=== PATIENT | female | born 1940 | race Caucasian/White ===

== ENCOUNTER 2018-07-27 07:22 | Day surgery (SDC) | payer MEDICARE, BC ==
[~2018-07-27 07:22] MED LIST: Lactated Ringers 1,000 ML IV SCH; Sodium Chloride 0.9% 10 ML Syringe FLUSH PRN
[2018-07-27] MEDS ORDERED: ceFAZolin 1 GM Vial ONE (07:27)
[2018-07-27] MEDS ORDERED: ceFAZolin 2 GM in Sodium Chloride 0.9% 50 ML IV SCH (08:00)
[2018-07-27] MEDS ORDERED: Propofol 200 MG/20 ML SDV ONE (09:20)
[2018-07-27 13:26] VITALS: BP 109/59
== END 2018-07-27 11:45 | disposition home or self-care (01) ==
LOC: LB.SDS 07:22
PROVIDERS: ATTEND Podiatrist Foot & Ankle Surgery
DX: M21.6X2 Other acquired deformities of left foot (principal); I48.91 Unspecified atrial fibrillation; N18.9 Chronic kidney disease, unspecified; I50.9 Heart failure, unspecified; D46.9 Myelodysplastic syndrome, unspecified; M06.9 Rheumatoid arthritis, unspecified; E53.8 Deficiency of other specified B group vitamins; Z87.891 Personal history of nicotine dependence; Z79.01 Long term (current) use of anticoagulants; Z79.899 Other long term (current) drug therapy; Z88.5 Allergy status to narcotic agent
CPT/HCPCS: J0690; J2704; J7050; J7120

== ENCOUNTER 2018-10-25 11:36 | Emergency (ER) | payer MEDICARE, BC ==
--- NOTE | 2018-10-25 12:03 | EDM.PDOC ---
ED HPI GENERAL MEDICAL PROBLEM - General Stated Complaint: LEG PAIN Time Seen by Provider: 10/25/18 11:45 Source of Information: Reports: Patient History Limitations: Reports: No Limitations - History of Present Illness INITIAL COMMENTS - FREE TEXT/NARRATIVE: Pt is a 77 year old female with past medical history of Paroxysmal atrial fibrillation , myelodysplastic syndrome. RA and nonischemic cardiomyopathy with Defibrillator on chronic anticoagulation. HE is here as she has not been able to get out of her bed as her left leg hurts. Apparently patient was down to see her vp software support yesterday and was doing fairly well. Her lasix was increased to 40mg as she has had increasing lower extremity edema, and scheduled for AV jake ablation at [facility] on 10/26/18. Pt claims that she has been hurting in her left lower extremity and has been using heating pad. today she cannot move the limb due to pain. No fever or chills. No nausea or vomiting. Onset: Today Onset Date: 10/25/18 Onset Time: 06:00 Location: Reports: Lower Extremity, Left Quality: Reports: Ache Severity: Severe Improves with: Reports: Heat Therapy Worsens with: Reports: Movement Associated Symptoms: Reports: Rash, Shortness of Breath (chronic with her CHF). Denies: Confusion, Chest Pain, Cough, Diaphoresis, Fever/Chills, Headaches, Nausea/Vomiting, Seizure, Syncope, Weakness Left Lower Leg Pain Score (Numeric/FACES): 10 - Related Data Allergies Allergy/AdvReac Type Severity Reaction Status Date / Time codeine Allergy Intermediate Chest Verified 07/24/18 15:04 Tightness meperidine HCl [From Demerol] AdvReac Intermediate Vomiting Verified 07/24/18 15 :04 morphine AdvReac Intermediate Vomiting Verified 07/24/18 15:04 acetaminophen [From Percocet] AdvReac Vomiting Verified 07/24/18 15:04 oxycodone AdvReac Vomiting Verified 07/24/18 15:04 Home Meds: Home Meds Digoxin 125 mcg PO DAILY 03/25/14 [History] Hydroxychloroquine Sulfate [Plaquenil] 200 mg PO DAILY 03/25/14 [History] Cyanocobalamin (Vitamin B12) [Vitamin B12] 1,000 mcg IM ASDIRECTED 07/24/18 [ History] Darbepoetin Carlos Alberto [Aranesp] 500 mcg SUBCUT ASDIRECTED 07/24/18 [History] Metoprolol Succinate [Toprol XL] 25 mg PO DAILY 07/24/18 [History] Rivaroxaban [Xarelto] 20 mg PO DAILY 07/24/18 [History] predniSONE [Prednisone] 5 mg PO DAILY 07/24/18 [History] Past Medical History HEENT History: Reports: Cataract Cardiovascular History: Reports: Afib, Heart Failure, Pacemaker Other Cardiovascular History: Heart failure from silent [place] or from rheumatic fever Gastrointestinal History: Reports: None Other Gastrointestinal History: ever since anitibiotics she's had loose bowels Genitourinary History: Reports: Chronic Renal Insuffiency, Other (See Below) Other Genitourinary History: enlarged uterus FREIGHT AGENT History: Reports: Other (See Below) Other FREIGHT AGENT History: endometrial mass/polyp Musculoskeletal History: Reports: Amputation, Fracture, RA Neurological History: Reports: MS Psychiatric History: Reports: Depression Other Psychiatric History: on Zolft from when , then put back on with illness Endocrine/Metabolic History: Reports: Vitamin D Deficiency Hematologic History: Reports: B12 Deficiency, Blood Transfusion(s) Oncologic (Cancer) History: Reports: Breast Other Dermatologic History: red spots come and go - Infectious Disease History Infectious Disease History: Reports: Other (See Below) Other Infectious Disease History: Sepsis - Past Surgical History HEENT Surgical History: Reports: Cataract Surgery, Tonsillectomy Cardiovascular Surgical History: Reports: Pacer GI Surgical History: Reports: Appendectomy, Cholecystectomy, Colon Neurological Surgical History: Reports: C-Spine, Discectomy Musculoskeletal Surgical History: Reports: Knee Replacement, Shoulder Surgery Other Musculoskeletal Surgeries/Procedures:: B knees, fingers amputated Oncologic Surgical History: Reports: Biopsy of Breast, Lumpectomy Other Oncologic Surgeries/Procedures: lymph node resection Social & Family History - Family History Cardiac: Reports: CAD, Heart Failure Oncologic: Reports: Colon, Non-Hodgkin's Lymphoma ED ROS GENERAL - Review of Systems Review Of Systems: See Below Constitutional: Reports: Weakness. Denies: Fever, Chills HEENT: Denies: Rhinitis, Throat Pain Respiratory: Denies: Shortness of Breath, Pleuritic Chest Pain, Cough, Sputum Cardiovascular: Reports: Dyspnea on Exertion (Chronic). Denies: Chest Pain, Lightheadedness Endocrine: Denies: Fatigue GI/Abdominal: Denies: Abdominal Pain, Nausea, Vomiting Musculoskeletal: Reports: Leg Pain. Denies: Joint Pain, Joint Swelling Skin: Reports: Rash, Erythema. Denies: Bruising, Pruritis, Wound Neurological: Denies: Confusion, Dizziness, Headache, Numbness, Tingling ED EXAM, GENERAL - Physical Exam Exam: See Below Exam Limited By: No Limitations General Appearance: Alert, WD/WN, Mild Distress (from left leg pain) Eye Exam: Bilateral Eye: EOMI, PERRL Ears: Normal External Exam, Normal Canal, Hearing Grossly Normal, Normal TMs Ear Exam: Bilateral Ear: TM normal Nose: Normal Inspection, Normal Mucosa, No Blood Throat/Mouth: Normal Inspection, Normal Lips, Normal Teeth, Normal Gums, Normal Oropharynx, Normal Voice, No Airway Compromise Head: Atraumatic, Normocephalic Neck: Normal Inspection, Supple, Non-Tender, Full Range of Motion Respiratory/Chest: No Respiratory Distress, Normal Breath Sounds, No Accessory Muscle Use, Chest Non-Tender, Decreased Breath Sounds (decreased air entry in the base) Cardiovascular: Normal Peripheral Pulses, No Edema, No Gallop, No JVD, No Murmur , No Rub, Irregularly Irregular Peripheral Pulses: 2+: Brachial (L), Brachial (R), Dorsalis Pedis (L), Dorsalis Pedis (R) GI/Abdominal: Normal Bowel Sounds, Soft, Non-Tender, No Organomegaly, No Distention, No Abnormal Bruit, No Mass Extremities: Pedal Edema (B/L 2 + pitting extends unto knees.), Other (Left lower extremity: there is erythema over the posterior aspect of the calk, knee and the lower thigh. There is skin edema too. Also there is milder edema spreading around it almost extending into the upper thigh anteromedially. Very warm and tender to touch. Pt cannot bend her left knee due to pain. ) Course - Vital Signs Text/Narrative:: 77 year old female with chronic CHF with nonischemic cardiomyopathy on Cardiac defibrillator and Chronic anticoagulation was seen by her Tnt Powder Worker yesterday. Hr lasix was increased to 40mg daily and also her metoprolol was increased from 25 to 50mg daily for rate control.. She appears to have been in decompensated CHF. Pt has been referred to Dr. Fam at [facility] for AV jake Ablation tomorrow. Apparently patient has developed significant acute cellulitis of the left lower extremity. Her Left lower extremity venous Doppler is negative for DVT today. CBC, CMP, Lactic acid, D-dimer, Blood cultures, BNP, troponin chest X- ray have been ordered. Form her recent visit yesterday to Dr. Ware( vp software support at [facility]) She is close to being in decompensated CHF, also now with her left lower extremity cellulitis and her low blood pressure, there is very close line with managing her IV fluids considering her poor Cardiac status. She is alert and oriented. Her Blood pressure is 88/53mmhg. Her CBC on 10/04/18 showed white count of 1.6, today her white count is 8.4 with 92 % neutrophils, this is relevantly elevated considering her myelodysplastic syndrome with very low white count. Lactic acid is 4.5. She has acute left lower extremity cellulitis with sepsis.Pt has been started on zosyn 3.375mg and vancomyicn 1gm . Also received dilaudid 1mg IV for limb pain. She does have chronic renal failure and her last creat recorded in her chart is 1.16 on 02/22, today her creat is 2.2 with BUN of 31. She did recieve NS 500cc bolus and placed her on NS at 100cc/hr Her EKG shows rate of 115 and in atrial flutter.Her Troponin is mildly elevated at 0.04. , this might be related to her sepsis or her CHF or the [place]. [place] [address]. I did contact [facility] and discuss patient with Dr. Ware (pt's Tnt Powder Worker). His recommendation is to transfer patient to [facility] as she has procedure scheduled fo tomorrow. I did contact Dr. Fam the Network Announcer and discuss patient with him. He agree to evaluated patient from the cardiac stand point when patient is stable for the procedure. Hence I have discussed patient with Dr. Morton, Hospitalist at [facility]. Dr. Morton has agreed to accept patient for further care. Pt will be transferred by [facility] ambulance. Pt is stable enough for the transfer. Further care per /Sarwat. Last Recorded V/S: Last Vital Signs Temp Pulse 124 H 10/25/18 12:05 Resp 14 10/25/18 12:05 BP 85/53 L 10/25/18 12:05 Pulse Ox - Orders/Labs/Meds Orders: Active Orders 24 hr Category Date Time Status Insert Orellana Catheter [Insert Urinary Catheter] [OM.PC] Care 10/25/18 12:15 Ordered Q24H Urinary Catheter Assessment [RC] ASDIRECTED Care 10/25/18 12:05 Active Chest 1V Frontal [CR] Stat Exams 10/25/18 12:03 Taken VL Duplex Lwr Ext Veins Ltd Lt [US] Stat Exams 10/25/18 11:55 Taken COMPREHENSIVE METABOLIC PN,CMP [CHEM] Stat Lab 10/25/18 11:54 Ordered CULTURE BLOOD [BC] Stat Lab 10/25/18 11:54 Ordered CULTURE BLOOD [BC] Stat Lab 10/25/18 12:09 Ordered Piperacillin/Tazobactam [Zosyn] 3.375 gm Med 10/25/18 12:45 Ordered Sodium Chloride 0.9% [Normal Saline] 100 ml IV Q6H Medication Orders Piperacillin Sod/Tazobactam (Sod 3.375 gm/ Sodium Chloride) 100 mls @ 100 mls/ hr IV Q6H BLANCA Labs: Laboratory Tests 10/25/18 10/25/18 10/25/18 Range/Units 12:30 12:30 12:30 WBC 8.4 D (4.0-11.0) K/uL RBC 2.40 L (3.80-5.80) M/uL Hgb 8.8 L (11.5-16.5) g/dL Hct 27.4 L (37.0-47.0) % MCV 114 H (76-96) fL MCH 36.7 H (27.0-32.0) pg MCHC 32.1 (31.0-35.0) g/dL RDW 22.3 H (11.0-16.0) % Plt Count 111 L (150-500) K/uL MPV 9.8 (6.0-10.0) fL Neut % (Auto) 92.0 H (45.0-70.0) % Lymph % (Auto) 3.1 L (20.0-40.0) % [place] % (Auto) 4.4 (3.0-10.0) % Eos % (Auto) 0.1 L (1.0-5.0) % Baso % (Auto) 0.4 (0.0-0.5) % Neut # (Auto) 7.73 H (2.00-7.50) K/uL Lymph # (Auto) 0.26 L (1.50-4.00) K/uL [place] # (Auto) 0.37 (0.20-0.80) K/uL Eos # (Auto) 0.01 L (0.04-0.40) K/uL Baso # (Auto) 0.03 (0.02-0.10) K/uL D-Dimer, Quantitative 241 (0-400) ng/mL Lactic Acid 4.55 H (0.90-1.70) mmol/L Meds: Medications Generic Name Dose Route Start Last Admin Trade Name Freq PRN Reason Stop Dose Admin Piperacillin Sod/Tazobactam 100 mls @ 100 mls/hr 10/25/18 12:45 Sod 3.375 gm/ Sodium Chloride IV Q6H BLANCA Discontinued Medications Generic Name Dose Route Start Last Admin Trade Name Freq PRN Reason Stop Dose Admin Hydromorphone HCl 1 mg 10/25/18 12:37 Dilaudid IVPUSH 10/25/18 12:38 ONETIME ONE Hydromorphone HCl Confirm 10/25/18 12:50 Dilaudid Administered 10/25/18 12:51 Dose 2 mg .ROUTE .STK-MED ONE Departure - Departure Time of Disposition: 15:00 Disposition: Against Medical Advice 07 Condition: Fair Clinical Impression: Sepsis, CHF (congestive heart failure), CRF (chronic renal failure) - Discharge Information *PRESCRIPTION DRUG MONITORING PROGRAM REVIEWED*: Not Applicable *COPY OF PRESCRIPTION DRUG MONITORING REPORT IN PATIENT JAY: Not Applicable Referrals: PCP,Unknown [Primary Care Provider] - - Problem List & Annotations (1) CHF (congestive heart failure) SNOMED Code(s): 08473744 Code(s): I50.9 - HEART FAILURE, UNSPECIFIED Status: Acute Current Visit: Yes (2) CRF (chronic renal failure) SNOMED Code(s): 64156480 Code(s): N18.9 - CHRONIC KIDNEY DISEASE, UNSPECIFIED Status: Acute Current Visit: Yes (3) Sepsis SNOMED Code(s): 27070255 Code(s): A41.9 - SEPSIS, UNSPECIFIED ORGANISM Status: Acute Current Visit : Yes - Problem List Review Problem List Initiated/Reviewed/Updated: Yes - My Orders Last 24 Hours: My Active Orders 10/25/18 11:54 COMPREHENSIVE METABOLIC PN,CMP [CHEM] Stat CULTURE BLOOD [BC] Stat 10/25/18 11:55 VL Duplex Lwr Ext Veins Ltd Lt [US] Stat 10/25/18 12:03 Chest 1V Frontal [CR] Stat 10/25/18 12:05 Urinary Catheter Assessment [RC] ASDIRECTED 10/25/18 12:09 CULTURE BLOOD [BC] Stat 10/25/18 12:15 Insert Orellana Catheter [Insert Urinary Catheter] [OM.PC] Q24H 10/25/18 12:45 Piperacillin/Tazobactam [Zosyn] 3.375 gm Sodium Chloride 0.9% [Normal Saline] 100 ml IV Q6H - Assessment/Plan Last 24 Hours: My Active Orders 10/25/18 11:54 COMPREHENSIVE METABOLIC PN,CMP [CHEM] Stat CULTURE BLOOD [BC] Stat 10/25/18 11:55 VL Duplex Lwr Ext Veins Ltd Lt [US] Stat 10/25/18 12:03 Chest 1V Frontal [CR] Stat 10/25/18 12:05 Urinary Catheter Assessment [RC] ASDIRECTED 10/25/18 12:09 CULTURE BLOOD [BC] Stat 10/25/18 12:15 Insert Orellana Catheter [Insert Urinary Catheter] [OM.PC] Q24H 10/25/18 12:45 Piperacillin/Tazobactam [Zosyn] 3.375 gm Sodium Chloride 0.9% [Normal Saline] 100 ml IV Q6H Assessment:: Left leg cellulitis Sepsis Chronic refractory CHF CRF Plan: I did contact Dr. Fam the Network Announcer and discuss patient with him. He agree to evaluated patient from the cardiac stand point when patient is stable for the procedure. Hence I have discussed patient with Dr. Morton, Hospitalist at [facility]. Dr. Morton has agreed to accept patient for further care. Pt will be transferred by [facility] air ambulance. Pt is stable enough for the transfer. Further care per /Sarwat.
[2018-10-25] MEDS ORDERED: HYDROmorphone 2 MG/ML Syringe IVPUSH ONE (12:37)
[2018-10-25] MEDS ORDERED: Piperacillin/Tazobactam 3.375 GM in Sodium Chloride 0.9% 100 ML IV SCH (12:45)
[2018-10-25] MEDS ORDERED: HYDROmorphone 2 MG/ML SDV ONE ×3 (12:50→14:51)
[2018-10-25] MEDS ORDERED: Vancomycin 1 GM SDV ONE (13:36)
[2018-10-25] MEDS ORDERED: Sodium Chloride 0.9% 500 ML IV ONE (14:09)
[2018-10-25] MEDS ORDERED: Sodium Chloride 0.9% 1,000 ML IV SCH (14:15)
--- NOTE | 2018-10-25 14:22 | US ---
DATE OF SERVICE: 10/25/18 CLINICAL DATA: Left lower extremity cellulitis. LEFT LEG VENOUS DOPPLER: Negative for DVT. [id number] MTDD
--- NOTE | 2018-10-25 14:27 | CR ---
Date of Service: 10/25/18 Clinical Data: Chronic CHF AP PORTABLE CHEST: Comparison is made to a prior exam dated 07/26/17. The patient has taken a poor inspiration. The cardiac pacer and pacer wires remain unchanged in position. The heart is enlarged. The aorta is ectatic. There is pulmonary vascular congestion and mild interstitial edema throughout both lungs consistent with a history of congestive failure. There are poorly defined ground-glass opacities in the right lower mid lung and in the left lung base consistent with infiltrate or atelectasis. Pneumonia should be considered. There is slight blunting of the left costophrenic angle consistent with small left pleural effusion. The exam is otherwise unchanged from the prior. [id number] MTDD
[2018-10-25 14:40] VITALS: BP 74/47
[2018-10-25] MEDS ORDERED: DOPamine/Dextrose 5%-Water 400 MG/250 ML BAG IV SCH (14:45)
== END 2018-10-25 15:10 | disposition left against medical advice (07) ==
LOC: LB.ED 11:36
DX: A41.9 Sepsis, unspecified organism (principal); I48.91 Unspecified atrial fibrillation; I50.9 Heart failure, unspecified; N18.9 Chronic kidney disease, unspecified; L03.116 Cellulitis of left lower limb
CPT/HCPCS: 36415; 51702; 71045; 80053; 81001; 83605; 83880; 84484; 85025; 85379; 87040; 87086; 87088; 93005; 93971; 96365; 96367; 96375; 99284; A0425; A0429; J1170; J1265; J2543; J3370; J7030; J7050; 87186